=== PATIENT | male | born 1990 | race Caucasian/White ===

== ENCOUNTER 2018-08-23 13:04 | Emergency (ER) | payer SELFPAY ==
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
[2018-08-23] MEDS ORDERED: IBUPROFEN 400 MG TAB ONE (13:44)
[2018-08-23] MEDS ORDERED: IBUPROFEN 200 MG TAB PO ONE (13:45)
--- NOTE | 2018-08-23 14:29 | EDPHYS ---
Physician Documentation [facility] Name: Inderjit Bustos Age: 27 yrs Sex: Male : 1990 Arrival Date: 08/23/2018 Time: 13:08 Bed 10 Private MD: None, None ED Physician Neptali Levine HPI: 08/23 13:44 This 27 yrs old Male presents to ER via Ambulatory with complaints of Flu rn Symptoms. 13:44 The patient or guardian reports cough, flu symptoms. Onset: The symptoms/episode rn began/occurred 3 day(s) ago. Severity of symptoms: At their worst the symptoms were mild, in the emergency department the symptoms are unchanged. Modifying factors: The symptoms are alleviated by nothing, the symptoms are aggravated by nothing. The patient has not experienced similar symptoms in the past. Reports fever, fatigue, runny nose, cough, congestion, muscle aches, thinks has the flu, came in because is feeling better now and heard on the news that people are dying from the flu so wanted to be safe. Reports started smoking recently. No sob. No chest pain. No abd pain. . Historical: - Allergies: 13:29 No Known Allergies; ss - Home Meds: 13:29 None [Active]; ss - PMHx: 13:29 None; ss - PSHx: 13:29 None; ss - Immunization history:: Adult Immunizations up to date. - Social history:: Smoking status: Patient/guardian denies using tobacco. - Ebola Screening: : Patient denies exposure to infectious person Patient denies travel to an Ebola-affected area in the 21 days before illness onset. - Family history:: not pertinent. - Hospitalizations: : No recent hospitalization is reported. 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 Exam: 13:44 Constitutional: This is a well developed, well nourished patient who is awake, alert, rn and in no acute distress. Head/Face: Normocephalic, atraumatic. Eyes: Bilateral conjunctival injection ENT: MMM, mild pharyngeal erythema, no stridor, no exudate Neck: Trachea midline. No cervical lymphadenopathy. Supple, full range of motion without nuchal rigidity, or vertebral point tenderness. No Meningismus. Cardiovascular: Regular rate and rhythm with a normal S1 and S2. No gallops, murmurs, or rubs. Normal PMI, no JVD. No pulse deficits. Respiratory: Lungs have equal breath sounds bilaterally, clear to auscultation. Speaking full sentences. No increased work of breathing, no retractions or nasal flaring. Skin: Warm, dry MS/ Extremity: Pulses equal, no cyanosis. Neurovascular intact. Neuro: Awake and alert, GCS 15, oriented to person, place, time, and situation. Cranial nerves II-XII grossly intact. Motor strength 5/5 in all extremities. Sensory grossly intact. Cerebellar exam normal. Vital Signs: 13:29 BP 129 / 71; Pulse 97; Resp 18; Temp 100.1(O); Pulse Ox 100% on R/A; Weight 90.72 kg; ss Height 5 ft. 9 in. (175.26 cm); Pain 9/10; 13:29 Body Mass Index 29.53 (90.72 kg, 175.26 cm) ss MDM: 13:30 Patient medically screened. rn 14:26 Differential Diagnosis: Influenza Upper Respiratory Infection Sinusitis Viral Syndrome. rn Data reviewed: vital signs, nurses notes, lab test result(s), and as a result, I will discharge patient. Counseling: I had a detailed discussion with the patient and/or guardian regarding: the historical points, exam findings, and any diagnostic results supporting the discharge/admit diagnosis, lab results, the need for outpatient follow up, to return to the emergency department if symptoms worsen or persist or if there are any questions or concerns that arise at home. Medical screen evaluation completed. EMTALA emergency medical condition absent. 14:27 ED course: Pt sleeping, no oxygen requirement, recommended smoking cessation and rn hydration, return precautions given and understood. . 08/23 13:27 Order name: Flu; Complete Time: 14:21 ss 08/23 13:27 Order name: Strep; Complete Time: 14:21 ss 08/23 13:57 Order name: Throat Culture EDMS Administered Medications: 13:36 Drug: Motrin 600 mg Route: PO; aa5 Disposition: 08/23/18 14:28 Discharged to Home. Impression: Acute upper respiratory infection, unspecified. - Condition is Stable. - Discharge Instructions: Upper Respiratory Infection, Adult. - Work release form, Medication Reconciliation Form, Thank You Letter, Antibiotic Education, Prescription Opioid Use form. - Follow up: Private Physician; When: As needed; Reason: Recheck today's complaints, Re-evaluation by your physician. - Problem is new. - Symptoms have improved. Signatures: Dispatcher [employer] EDGA Neptali Levine MD MD rn Calderon, Audri RN RN aa5 Jacquelyn Zavala RN RN ss Corrections: (The following items were deleted from the chart) 15:15 14:28 08/23/2018 14:28 Discharged to Home. Impression: Acute upper respiratory aa5 infection, unspecified. Condition is Stable. Forms are Medication Reconciliation Form, Thank You Letter, Antibiotic Education, Prescription Opioid Use. Follow up: Private Physician; When: As needed; Reason: Recheck today's complaints, Re-evaluation by your physician. Problem is new. Symptoms have improved. rn
--- NOTE | 2018-08-23 14:29 | ER ---
Nurse's Notes [facility] Name: Inderjit Bustos Age: 27 yrs Sex: Male : 1990 Arrival Date: 08/23/2018 Time: 13:08 Bed 10 Private MD: None, None Diagnosis: Acute upper respiratory infection, unspecified Presentation: 08/23 13:28 Presenting complaint: Patient states: flu like symptoms x 2-3 days. Transition of care: ss patient was not received from another setting of care. Onset of symptoms was August 19, 2018. Risk Assessment: Do you want to hurt yourself or someone else? Patient reports no desire to harm self or others. Initial Sepsis Screen: Does the patient meet any 2 criteria? HR > 90 bpm. Does the patient have a suspected source of infection? No. Patient's initial sepsis screen is negative. Care prior to arrival: None. 13:28 Method Of Arrival: Ambulatory ss 13:28 Acuity: SHON 4 ss Historical: - Allergies: 13:29 No Known Allergies; ss - Home Meds: 13:29 None [Active]; ss - PMHx: 13:29 None; ss - PSHx: 13:29 None; ss - Immunization history:: Adult Immunizations up to date. - Social history:: Smoking status: Patient/guardian denies using tobacco. - Ebola Screening: : Patient denies exposure to infectious person Patient denies travel to an Ebola-affected area in the 21 days before illness onset. - Family history:: not pertinent. - Hospitalizations: : No recent hospitalization is reported. Screenin:35 Abuse screen: Denies threats or abuse. Nutritional screening: No deficits noted. aa5 Tuberculosis screening: No symptoms or risk factors identified. Fall Risk None identified. Assessment: 13:35 General: Appears comfortable, Behavior is calm, cooperative. Pain: Complains of pain in aa5 whole body Pain currently is 9 out of 10 on a pain scale. Quality of pain is described as aching, Pain began 2-3 days ago. Is continuous. Neuro: Level of Consciousness is awake, alert, obeys commands, Oriented to person, place, time, situation. Cardiovascular: Heart tones S1 S2 present Rhythm is regular. Respiratory: Reports cough Airway is patent Respiratory effort is even, unlabored, Respiratory pattern is regular, symmetrical, Breath sounds are clear bilaterally. Denies shortness of breath. GI: No signs and/or symptoms were reported involving the gastrointestinal system. : No signs and/or symptoms were reported regarding the genitourinary system. EENT: Reports nasal congestion nasal discharge. Derm: Skin is pink, warm \T\ dry. Musculoskeletal: Range of motion: intact in all extremities. 15:10 Reassessment: Patient is alert, oriented x 3, equal unlabored respirations, skin aa5 warm/dry/pink. Vital Signs: 13:29 BP 129 / 71; Pulse 97; Resp 18; Temp 100.1(O); Pulse Ox 100% on R/A; Weight 90.72 kg; ss Height 5 ft. 9 in. (175.26 cm); Pain 9/10; 13:29 Body Mass Index 29.53 (90.72 kg, 175.26 cm) ED Course: 13:08 Patient arrived in ED. mr 13:09 None, None is Private Physician. mr 13:29 Triage completed. ss 13:29 Arm band placed on right wrist. ss 13:30 Neptali Levine MD is Attending Physician. rn 13:30 Zulema Adames, RN is Primary Nurse. aa5 13:35 Patient has correct armband on for positive identification. Bed in low position. Call aa5 light in reach. Side rails up X 1. Adult w/ patient. 15:00 No provider procedures requiring assistance completed. Patient did not have IV access aa5 during this emergency room visit. Administered Medications: 13:36 Drug: Motrin 600 mg Route: PO; aa5 Outcome: 14:28 Discharge ordered by . rn 15:10 Discharged to home ambulatory. aa5 15:10 Condition: good 15:10 Discharge instructions given to patient, Instructed on discharge instructions, follow up and referral plans. Demonstrated understanding of instructions, follow-up care. 15:15 Patient left the ED. aa5 Signatures: Kiley Vera mr Neptali Levine MD MD rn Calderon, Audri, RN RN aa5 Jacquelyn Zavala RN RN Corrections: (The following items were deleted from the chart) 18:39 14:00 Patient did not have IV access during this emergency room visit. aa5 aa5 18:39 14:00 No provider procedures requiring assistance completed. aa5 aa5
== END 2018-08-23 15:15 | disposition home or self-care (01) ==
LOC: ER 13:04
DX: J06.9 Acute upper respiratory infection, unspecified (principal); F17.200 Nicotine dependence, unspecified, uncomplicated
CPT/HCPCS: 87070; 87081; 87804; 99283

== ENCOUNTER 2024-06-08 20:05 | Emergency (ER) | payer SELFPAY ==
[2024-06-08 21:04] LABS: Absolute Eosinophils 0.1 K/uL (0-0.5); Absolute Lymphocytes (CBC) 1.3 K/uL (0.7-4.9); Absolute Monocytes 0.2 K/uL (0.1-1.3); Absolute Neutrophil 3.2 K/uL (1.8-8.0); Basophils % 0.4 % (0-1.3); Eosinophils % 1.7 % (0-4.4); Hematocrit 41.7 % (39.6-49.0); Hemoglobin 14.1 g/dL (13.6-17.9); MCH 28.2 pg (27.0-35.0); MCHC 33.8 g/dL (32.0-36.0); MCV 83.3 fL (80-100); Monocytes % 3.9 % (3.3-12.3); Nucleated Red Blood Cells % 0.2 % (0-0); Platelets 227 thou/uL (152-406); Red Cell Distribution Width 14.6 % (12.1-15.2)
[2024-06-08 21:24] LABS: ALT/SGPT 120 U/L (16-61); AST/SGOT 43 U/L (15-37); Albumin 3.5 g/dL (3.4-5.0); Alkaline Phosphatase 76 U/L (45-117); Anion Gap 7.1 mEq/L (5.0-15.0); BUN Blood Urea Nitrogen 12 mg/dL (7-18); Bicarbonate 27 mEq/L (21-32); Bilirubin Total 0.3 mg/dL (0.2-1.0); Creatine Phosphokinase 118 U/L (39-308); Globulin 3.5 g/dL (2.3-3.5); Glomerular Filtration Rate 90 ml/min (=/>90); Glucose Level 97 mg/dL (74-106); Potassium 3.1 mEq/L (3.5-5.1); Sodium Level 139 mEq/L (136-145)
[2024-06-08 21:25] LABS: Bilirubin Direct < 0.2 mg/dL (0-0.2); Bilirubin Indirect, Calculated 0.1 mg/dL (0.2-0.8)
[2024-06-08] MEDS ORDERED: NA CHLORIDE 0.9% 1,000 ML ONE (21:35)
[2024-06-08] MEDS ORDERED: LEVETIRACETAM 500 MG/5 ML VIAL IV ONE (21:35)
[2024-06-08] MEDS ORDERED: NA CHLORIDE 0.9% 100 ML ONE (21:36)
--- NOTE | 2024-06-08 22:30 | RAD REPORT ---
EXAM: CT Head Brain Wo Cont HISTORY: seizure, history of brain bleed COMPARISON: None TECHNIQUE: Multiple contiguous axial images were obtained for a CT of the brain without contrast. Sag ittal and coronal reformats were performed. One or more of the following dose reduction techniques were used: Automated exposure control, adjus tment of the mA and kV according to patient size, and iterative reconstruction. Unless otherwise specified, incidental findings do not require dedicated imaging follow-up. FINDINGS: No evidence of hydrocephalus, intracranial hemorrhage, or extra-axial fluid collection. Left frontoparietal and mild left cerebellar encephalomalacia, with ex vacuo dilation of the left la teral ventricle. Left parietal/temporal craniotomy. The calvarium is intact. The visualized paranasal sinuses and mastoid air cells are essentially clear . IMPRESSION: No evidence of acute intracranial abnormality. Chronic findings as above.
--- NOTE | 2024-06-08 22:46 | ER ---
[facility] Inder[facility]it [facility] Age: 33 yrs Sex: Male : 1990 Arrival Date: 06/08/2024 Time: 20:05 Bed 2 Private MD: Diagnosis: Other seizures;Drew seizure Presentation: 06/08 20:13 Chief complaint: EMS states: seizure and allergic reaction. Family states he has cp4 allergic reactions when he has seizures. Patient is on Keppra. Coronavirus screen: Client denies travel out of the [place] in the last 14 days. At this time, the client does not indicate any symptoms associated with coronavirus-19. Ebola Screen: Patient negative for fever greater than or equal to 101.5 degrees Fahrenheit, and additional compatible Ebola Virus Disease symptoms Patient denies exposure to infectious person. Patient denies travel to an Ebola-affected area in the 21 days before illness onset. No symptoms or risks identified at this time. Initial Sepsis Screen: Does the patient meet any 2 criteria? HR > 90 bpm. No. Patient's initial sepsis screen is negative. Does the patient have a suspected source of infection? No. Patient's initial sepsis screen is negative. Risk Assessment: Do you want to hurt yourself or someone else? Patient reports no desire to harm self or others. Onset of symptoms was June 08, 2024. 20:13 Method Of Arrival: EMS: [facility] cp4 20:13 Acuity: SHON 3 cp4 Triage Assessment: 20:16 General: Appears in no apparent distress. uncomfortable, Behavior is calm, cooperative, cp4 appropriate for age. Pain: Denies pain. Neuro: Level of Consciousness is awake, alert, obeys commands, Oriented to person, place, time, situation. Cardiovascular: Patient's skin is warm and dry. Respiratory: Airway is patent Respiratory effort is even, unlabored. GI: No deficits noted. : No deficits noted. Derm: No deficits noted. Musculoskeletal: No deficits noted. Historical: - Allergies: 20:16 No Known Allergies; cp4 - Immunization history:: Adult Immunizations up to date. - Infectious Disease History:: Denies. - Social history:: Smoking status: Patient denies any tobacco usage or history of. - Family history:: not pertinent. Screenin:36 [facility] ED Fall Risk Assessment (Adult) History of falling in the last 3 months, cp4 including since admission No falls in past 3 months (0 pts) Confusion or Disorientation No (0 pts) Intoxicated or Sedated No (0 pts) Impaired Gait Yes (1 pt) Mobility Assist Device Used Yes (1 pt) Altered Elimination No (0 pt) Score/Fall Risk Level 0 - 2 = Low Risk Oriented to surroundings, Maintained a safe environment, Assessed \T\ reinforced patient's understanding of fall precautions, Hourly rounding (assess needs \T\ fall precautionary measures) done. Abuse screen: Denies threats or abuse. Nutritional screening: No deficits noted. Tuberculosis screening: No symptoms or risk factors identified. Assessment: 20:36 Pain: Denies pain. Neuro: Level of Consciousness is awake, alert, obeys commands, cp4 Oriented to person, place, time, situation, Fusing Furnace Loader are weak on right Weakness in right arm(s) leg(s) Gait is unsteady, Speech with expressive aphasia noted, Facial symmetry appears normal, Pupils are PERRLA, Intact. 22:07 Reassessment: Patient appears in no apparent distress at this time. Patient and/or cp4 family updated on plan of care and expected duration. Pain level reassessed. Patient is alert, oriented x 3, equal unlabored respirations, skin warm/dry/pink. Vital Signs: 20:13 BP 150 / 104; Pulse 110; Resp 18; Temp 97.6; Pulse Ox 100% ; Pain 0/10; cp4 21:00 BP 126 / 90; Pulse 84; Resp 18; Pulse Ox 95% ; cp4 22:00 BP 131 / 88; Pulse 88; Resp 18; Pulse Ox 98% ; cp4 23:11 BP 129 / 82; Pulse 80; Resp 18; Pulse Ox 97% ; cp4 20:13 Pain Scale: Adult cp4 Kimball Coma Score: 20:16 Eye Response: spontaneous(4). Motor Response: obeys commands(6). Verbal Response: cp4 oriented(5). Total: 15. 06/09 21:48 Eye Response: spontaneous(4). Motor Response: obeys commands(6). Verbal Response: sp4 oriented(5). Total: 15. ED Course: 06/08 20:07 Patient arrived in ED. gm2 20:12 Frances Payton is Primary Nurse. cp4 20:13 Quinten Stratton MD is Attending Physician. sp4 20:16 Triage completed. cp4 20:16 Arm band placed on right wrist. Patient placed in an exam room, on a stretcher. cp4 20:36 Bed in low position. Call light in reach. Side rails up X 1. Provided Education on:. cp4 20:36 Seizure precautions initiated. cp4 20:36 Maintain EMS IV. Dressing intact. Good blood return noted. Site clean \T\ dry. Gauge \T\ cp 4 site: 18 G LAC. Flushed with 10 mL NS. 20:51 Initial lab(s) drawn, by me. sa1 21:38 CT Head Brain wo Cont In Process Unspecified. EDMS 23:12 No provider procedures requiring assistance completed. intact, bleeding controlled, No cp4 redness/swelling at site. Pressure dressing applied. Administered Medications: 22:02 Drug: Keppra IV 1000 mg IV at calculated rate once Route: IV; Rate: calculated rate; cp4 Site: left antecubital; 23:11 Follow up: IV Status: Completed infusion cp4 22:02 Drug: NS 0.9% IV 1000 ml IV at 1000 ml once; to be given as a bolus over 60 minutes cp4 Route: IV; Rate: 1000 ml; Site: left antecubital; 23:11 Follow up: IV Status: Completed infusion cp4 Medication: 20:36 VIS not applicable for this client. cp4 Outcome: 22:46 Discharge ordered by . sp4 23:14 Discharged to home via wheelchair, cp4 23:14 Condition: stable 23:14 Discharge instructions given to patient, family, Instructed on discharge instructions, follow up and referral plans. medication usage, Demonstrated understanding of instructions, follow-up care, medications, Prescriptions given X 1, 23:14 Patient left the ED. cp4 Signatures: Dispatcher [employer] EDMS Quinten Stratton MD MD sp4 Frances Payton cp4 Dimple [facility] [place] [facility]
--- NOTE | 2024-06-08 22:46 | EDPHYS ---
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 Patient was given total of 5 mg IV Versed prior to arrival.. 21:39 Patient is under management by neurologist in [place]. Patient takes Keppra 1500 mg sp4 twice daily. Historical: - Allergies: 06/08 20:16 No Known Allergies; cp4 - Immunization history:: Adult Immunizations up to date. - Infectious Disease History:: Denies. - Social history:: Smoking status: Patient denies any tobacco usage or history of. - Family history:: not pertinent. ROS: 06/09 21:39 Constitutional: Negative for fever, chills, and weight loss, positive for generalized sp4 seizure All other systems are negative, Exam: 21:40 Constitutional: This is a well developed, well nourished patient who is awake, alert, sp4 and in no acute distress. Patient has chronic right-sided hemiparesis from prior CVA associated aphasia from prior CVA. Head/Face: Normocephalic, atraumatic. 21:48 Eyes: Pupils equal round and reactive to light, extra-ocular motions intact. Lids and sp4 lashes normal. Conjunctiva and sclera are not injected. Cornea within normal limits. Periorbital areas with no swelling, redness, or edema. ENT: Nares patent. No nasal discharge, no septal abnormalities noted. Tympanic membranes are normal and external auditory canals are clear. Oropharynx with no redness, swelling, or masses, exudates, or evidence of obstruction, uvula midline. Mucous membranes moist. Neck: Trachea midline, no thyromegaly or masses palpated, and no cervical lymphadenopathy. Supple, full range of motion without nuchal rigidity, or vertebral point tenderness. Chest/axilla: Normal chest wall appearance and motion. Nontender with no deformity. No lesions are appreciated. Cardiovascular: Regular rate and rhythm with a normal S1 and S2. No gallops, murmurs, or rubs. Normal PMI, no JVD. No pulse deficits. Respiratory: Lungs have equal breath sounds bilaterally, clear to auscultation and percussion. No rales, rhonchi or wheezes noted. No increased work of breathing, no retractions or nasal flaring. Abdomen/GI: Soft, with normal bowel sounds. No distension or tympany. No guarding or rebound. No evidence of tenderness throughout. Back: No spinal tenderness. No costovertebral tenderness. Skin: Warm, dry with normal turgor. Normal color with no rashes, no lesions, and no evidence of cellulitis. MS/ Extremity: Pulses equal, no cyanosis. There is chronic appearing right-sided hemiparesis. Muscular deconditioning secondary to hemiparesis, right-sided muscular atrophy secondary to hemiparesis. Neuro: Awake and alert, GCS 15, oriented to person, place, patient appears to have longstanding aphasia from prior CVA associated with chronic right-sided hemiparesis. No new neurologic deficits reported. 22:15 ECG was reviewed by the Attending Physician. EKG at 2017 sinus tachycardia rate 113 sp4 otherwise normal Vital Signs: 06/08 20:13 BP 150 / 104; Pulse 110; Resp 18; Temp 97.6; Pulse Ox 100% ; Pain 0/10; cp4 21:00 BP 126 / 90; Pulse 84; Resp 18; Pulse Ox 95% ; cp4 22:00 BP 131 / 88; Pulse 88; Resp 18; Pulse Ox 98% ; cp4 23:11 BP 129 / 82; Pulse 80; Resp 18; Pulse Ox 97% ; cp4 20:13 Pain Scale: Adult cp4 Davis Coma Score: 20:16 Eye Response: spontaneous(4). Motor Response: obeys commands(6). Verbal Response: cp4 oriented(5). Total: 15. 06/09 21:48 Eye Response: spontaneous(4). Motor Response: obeys commands(6). Verbal Response: sp4 oriented(5). Total: 15. MDM: 06/08 20:15 Medical Screening Exam initiated sp4 06/09 21:47 Differential diagnosis: cerebral vascular accident, drug overdose, cardiac arrhythmia, sp4 seizure, TIA. Data reviewed: vital signs, nurses notes, EMS record, old medical records, lab test result(s), radiologic studies, CT scan. Consideration of Admission/Observation Escalation of care including admission/observation considered. ED course: EXAM: CT Head Brain Wo Cont HISTORY: seizure, history of brain bleed COMPARISON: None TECHNIQUE: Multiple contiguous axial images were obtained for a CT of the brain without contrast. Sagittal and coronal reformats were performed. One or more of the following dose reduction techniques were used: Automated exposure control, adjustment of the mA and kV according to patient size, and iterative reconstruction. Unless otherwise specified, incidental findings do not require dedicated imaging follow-up. FINDINGS: No evidence of hydrocephalus, intracranial hemorrhage, or extra-axial fluid collection. Left frontoparietal and mild left cerebellar encephalomalacia, with ex vacuo dilation of the left lateral ventricle. Left parietal/temporal craniotomy. The calvarium is intact. The visualized paranasal sinuses and mastoid air cells are essentially clear. IMPRESSION: No evidence of acute intracranial abnormality. Chronic findings as above.. ED course: No further seizures observed in the ER. Patient prescribed intranasal diazepam as needed seizure at home. Patient was advised to see his neurologist for adjustment of his antiepileptic. 06/08 20:14 Order name: Basic Metabolic Panel; Complete Time: 22:35 sp4 06/08 20:14 Order name: CBC with Diff; Complete Time: 22:35 sp4 06/08 20:14 Order name: LFT's; Complete Time: 22:35 sp4 06/08 20:15 Order name: CK; Complete Time: 22:35 sp4 06/08 20:15 Order name: Lactate w/ 2H reflex if indic.; Complete Time: 22:35 sp4 06/08 21:25 Order name: Ghost Lactate-NO COLLECT Timer EDMS 06/08 20:15 Order name: CT Head Brain wo Cont; Complete Time: 22:35 sp4 06/08 20:14 Order name: Cardiac monitoring; Complete Time: 20:46 sp4 06/08 20:14 Order name: IV Saline Lock; Complete Time: 20:46 sp4 06/08 20:14 Order name: Labs collected and sent; Complete Time: 21:14 sp4 06/08 20:14 Order name: O2 Per Protocol; Complete Time: 20:46 sp4 06/08 20:14 Order name: O2 Sat Monitoring; Complete Time: 20:46 sp4 EC/25 20:17 Rate is 113 beats/min. Rhythm is regular, Sinus tachycardia. QRS [place] is Normal. OR sp4 interval is normal. QRS interval is normal. QT interval is normal. No Q waves. T waves are Normal. No ST changes noted. Clinical impression: No evidence of ischemia. Interpreted by me. Reviewed by me. Administered Medications: 22:02 Drug: Keppra IV 1000 mg IV at calculated rate once Route: IV; Rate: calculated rate; cp4 Site: left antecubital; 23:11 Follow up: IV Status: Completed infusion cp4 22:02 Drug: NS 0.9% IV 1000 ml IV at 1000 ml once; to be given as a bolus over 60 minutes cp4 Route: IV; Rate: 1000 ml; Site: left antecubital; 23:11 Follow up: IV Status: Completed infusion cp4 Disposition Summary: 06/08/24 22:46 Discharge Ordered Notes: Location: Home sp4 Problem: new sp4 Symptoms: have improved sp4 Condition: Stable sp4 Diagnosis - Other seizures sp4 - Brrakthrough seizure sp4 Followup: sp4 - With: Private Physician - When: 7 - 10 days - Reason: Recheck today's complaints Discharge Instructions: - Discharge Summary Sheet sp4 - Seizure, Adult sp4 Forms: - Patient Portal Instructions sp4 Prescriptions: - diazepam 10 mg/spray (0.1 mL) Nasal spray, non-aerosol - spray 0.1 milliliter INTRANASAL route once 1 spray in single nostril; as a sp4 single dose, PRN seizure; 1 Kit; Refills: 0, Product Selection Permitted Signatures: Dispatcher [employer] Quinten Vinson MD MD sp4 Frances Payton
[2024-06-08 23:22] VITALS: TEMP 97.6
[2024-06-08 23:27] VITALS: BP 129/82; O2SAT 97
--- NOTE | 2024-06-13 11:23 | EKG ---
Test Date: 2024-06-08 Test Time: 20:17:42 Systems Software Designer: MEASUREMENT RESULTS: Intervals: Rate: 113 LA: 172 QRSD: 92 QT: 346 QTc: 474 [place]: P: 57 LA: 172 QRS: 14 T: 56 INTERPRETIVE STATEMENTS: Sinus tachycardia Otherwise normal ECG No previous ECG available for comparison Electronically Signed On 06-13-24 11:16:06 MANAGER INPATIENT by Serge Mariano
== END 2024-06-08 23:14 | disposition home or self-care (01) ==
LOC: ER 20:05
DX: G40.89 Other seizures (principal)
CPT/HCPCS: 36415; 70450; 80048; 80076; 82550; 83605; 85025; 93005; 96365; 99284; J1953; J7030